=== PATIENT | male | born 1935 | race Caucasian/White ===

== ENCOUNTER → 2024-01-10 10:37 | Outpatient (REF) | payer MEDICARE, BC, SELFPAY | LOC: RAD 10:37 | PROVIDERS: ATTENDING PHYSICIAN Surgery Vascular Surgery; FAMILY PHYSICIAN Family Medicine | DX: I77.9 Disorder of arteries and arterioles, unspecified (principal); I65.22 Occlusion and stenosis of left carotid artery | CPT/HCPCS: 93880 ==

== ENCOUNTER 2024-01-25 07:33 | Outpatient (RCR) | payer MEDICARE, BC, SELFPAY ==
[2024-01-25 08:00] VITALS: BP 155/76
[2024-01-25] MEDS: SODIUM BICARBONATE 1150 MEQ IV (08:01)
== END 2024-02-08 23:59 | disposition home or self-care (01) ==
LOC: OID 07:33
PROVIDERS: ATTENDING PHYSICIAN Surgery Vascular Surgery
DX: I77.9 Disorder of arteries and arterioles, unspecified (principal); I71.40 Abdominal aortic aneurysm, without rupture, unspecified; Z92.89 Personal history of other medical treatment
CPT/HCPCS: 96360; 96361

== ENCOUNTER → 2024-01-25 08:20 | Outpatient (REF) | payer MEDICARE, BC, SELFPAY | LOC: RAD 08:20 | PROVIDERS: ATTENDING PHYSICIAN Surgery Vascular Surgery; FAMILY PHYSICIAN Family Medicine | DX: I65.23 Occlusion and stenosis of bilateral carotid arteries (principal) | CPT/HCPCS: 70496; 70498; Q9967 ==

== ENCOUNTER → 2024-07-28 09:38 | Outpatient (REF) | payer MEDICARE, BC, SELFPAY | LOC: RAD 09:38 | PROVIDERS: ATTENDING PHYSICIAN Surgery Vascular Surgery; FAMILY PHYSICIAN Nurse Practitioner Acute Care | DX: I77.9 Disorder of arteries and arterioles, unspecified (principal); I65.22 Occlusion and stenosis of left carotid artery | CPT/HCPCS: 93880 ==

== ENCOUNTER → 2024-09-08 11:39 | Outpatient (REF) | payer MEDICARE, BC, SELFPAY | LOC: HWRCS 11:39 | PROVIDERS: ATTENDING PHYSICIAN Internal Medicine Cardiovascular Disease; FAMILY PHYSICIAN Family Medicine | DX: Z95.2 Presence of prosthetic heart valve (principal) | CPT/HCPCS: 93306 ==

== ENCOUNTER → 2025-02-19 13:32 | Outpatient (REF) | payer MEDICARE, BC, SELFPAY | LOC: DHVS 13:32 | PROVIDERS: ATTENDING PHYSICIAN Surgery Vascular Surgery; FAMILY PHYSICIAN Family Medicine | DX: I77.9 Disorder of arteries and arterioles, unspecified (principal); I65.22 Occlusion and stenosis of left carotid artery | CPT/HCPCS: 93880 ==